=== PATIENT | female | born 1990 | race Caucasian/White ===

== ENCOUNTER 2017-04-25 12:40 | Emergency (ER) | payer BC ==
[2017-04-25 13:02] VITALS: BP 130/84
[2017-04-25] MEDS ORDERED: Clindamycin Phosphate 600 MG in Sodium Chloride 0.9% 100 ML IV ONE (13:21)
[2017-04-25] MEDS ORDERED: Sodium Chloride 0.9% 10 ML Syringe FLUSH PRN (13:22)
--- NOTE | 2017-04-25 13:30 | EDM.PDOC ---
ED HPI GENERAL MEDICAL PROBLEM - General Chief Complaint: ENT Problem Stated Complaint: SWOLLEN JAW/DENTAL PAIN Time Seen by Provider: 04/25/17 13:11 Source of Information: Reports: Patient History Limitations: Reports: No Limitations - History of Present Illness INITIAL COMMENTS - FREE TEXT/NARRATIVE: Patient is a 26-year-old female who presents to the ED complaining of right- sided lower jaw swelling and tooth pain. Patient states she's had expressed and pain to the right lower jaw where she has a tooth that has severe dental EKG. She took ibuprofen without relief. Upon waking this morning she noticed some swelling to her right lower jaw with worsening pain. She was seen at [facility] and prescribed clindamycin and Percocet. She took 2 tabs of clindamycin of unknown dose. Took a nap and upon awaking from the nap noted increasing swelling and pain. She was instructed to come to the ED for IV antibiotics. She has no history of prior symptoms. Denies any fever, nausea/vomiting, stiff neck , difficulty swallowing, or any additional complaints. She denies being . Tooth/Teeth Pain Score (Numeric/FACES): 5 - Related Data Allergies Allergy/AdvReac Type Severity Reaction Status Date / Time No Known Allergies Allergy Verified 04/25/17 13:02 Home Meds: Home Meds Clindamycin HCl 300 mg PO DAILY 04/25/17 [History] oxyCODONE HCl/Acetaminophen [Percocet 5-325 mg Tablet] 1 tab PO Q4H PRN [History] Past Medical History - Past Health History Medical/Surgical History: Denies Medical/Surgical History Social & Family History - Tobacco Use Smoking Status *Q: Current Every Day Smoker Years of Tobacco use: 3 Packs/Tins Daily: 0.1 - Caffeine Use Caffeine Use: Reports: None ED ROS ENT - Review of Systems Review Of Systems: ROS reveals no pertinent complaints other than HPI. ED EXAM, ENT - Physical Exam Exam: See Below Exam Limited By: No Limitations General Appearance: Alert, WD/WN, No Apparent Distress Ears: Hearing Grossly Normal Nose: Normal Inspection, Normal Mucousa, No Blood Mouth/Throat: Dental Abcess (right lower jaw), Dental Pain (#30 tooth with severe decay), Other (Gumline along the right lower jaw swollen with increasing pain noted. No purulent drainage. Cheek is swollen as well approximate the lower jaw. Lymphadenopathy noted submandibular with increasing pain noted.). No : Drooling, Dry Mucous Membrane, Hoarse Voice, Muffled Voice, Trismus, Uvular Deviation Course - Vital Signs Last Recorded V/S: Last Vital Signs Temp 97.9 F 04/25/17 12:54 Pulse 75 04/25/17 12:54 Resp 16 04/25/17 12:54 BP 130/84 04/25/17 12:54 Pulse Ox 96 04/25/17 12:54 - Orders/Labs/Meds Labs: Laboratory Tests 04/25/17 04/25/17 04/25/17 Range/Units 13:10 13:10 13:10 WBC 11.83 H (3.98-10.04) K/mm3 RBC 5.15 (3.98-5.22) M/mm3 Hgb 15.3 (11.2-15.7) gm/L Hct 45.1 H (34.1-44.9) % MCV 87.6 (79.4-94.8) fl MCH 29.7 (25.6-32.2) pg MCHC 33.9 (32.2-35.5) g/dl RDW Std Deviation 38.3 (36.4-46.3) fL Plt Count 313 (182-369) K/mm3 MPV 9.9 (9.4-12.3) fl Neut % (Auto) 74.3 H (34.0-71.1) % Lymph % (Auto) 16.8 L (19.3-51.7) % [place] % (Auto) 7.9 (4.7-12.5) % Eos % (Auto) 0.7 (0.7-5.8) Baso % (Auto) 0.2 (0.1-1.2) % Neut # (Auto) 8.79 H (1.56-6.13) K/mm3 Lymph # (Auto) 1.99 (1.18-3.74) K/mm3 [place] # (Auto) 0.94 H (0.24-0.36) K/mm3 Eos # (Auto) 0.08 (0.04-0.36) K/mm3 Baso # (Auto) 0.02 (0.01-0.08) K/mm3 Sodium 142 (136-145) mEq/L Potassium 4.0 (3.5-5.1) mEq/L Chloride 104 (98-107) mEq/L Carbon Dioxide 29 (21-32) mEq/L Anion Gap 13.0 (5-15) BUN 11 (7-18) mg/dL Creatinine 1.0 (0.55-1.02) mg/dL Est Cr Clr Drug Dosing 66.83 mL/min Estimated GFR (MDRD) > 60 (>60) mL/min BUN/Creatinine Ratio 11.0 L (14-18) Glucose 91 (74-106) mg/dL Calcium 9.1 (8.5-10.1) mg/dL Total Bilirubin 1.1 H (0.2-1.0) mg/dL AST 18 (15-37) U/L ALT 40 (14-59) U/L Alkaline Phosphatase 99 (46-116) U/L C-Reactive Protein 4.0 H* (<1.0) mg/dL Total Protein 7.4 (6.4-8.2) g/dl Albumin 3.8 (3.4-5.0) g/dl Globulin 3.6 gm/dL Albumin/Globulin Ratio 1.1 (1-2) HCG, Qual Negative (NEGATIVE) Meds: Medications Discontinued Medications Generic Name Dose Route Start Last Admin Trade Name Freq PRN Reason Stop Dose Admin Hydromorphone HCl 0.5 mg 04/25/17 14:19 04/25/17 14:27 Dilaudid IVPUSH 04/25/17 14:20 0.5 mg ONETIME ONE Administration Clindamycin Phosphate 600 mg/ 104 mls @ 100 mls/hr 04/25/17 13:21 04/25/17 13 :30 Sodium Chloride IV 04/25/17 14:23 100 mls/hr ONETIME ONE Administration Ketorolac Tromethamine 30 mg 04/25/17 14:19 04/25/17 14:31 Toradol IVPUSH 04/25/17 14:20 30 mg ONETIME ONE Administration Sodium Chloride 10 ml 04/25/17 13:22 04/25/17 13:30 Saline Flush FLUSH 10 ml ASDIRECTED PRN Administration Keep Vein Open - Re-Assessments/Exams Free Text/Narrative Re-Assessment/Exam: Peripheral IV established clindamycin 600 mg IVP. Initial blood work included CBC, chem 14, CRP, and hCG qualitative. Reassessment, pain to the right lower jaw is increasing. Ordered dilaudid IVP. Discussed labs with patient. Utilized ultrasound to evaluate for any obvious pus pockets with none found. I explained to her the antibiotic will take approximately 24 hours to take affect. Swelling may increase until reaches therapeutic level.Offered to obtain CT of the soft tissue neck to which she has refused. We'll discharge patient home with instructions as documented. She has prescription for clindamycin and Percocet. Departure - Departure Time of Disposition: 14:21 Disposition: Home, Self-Care 01 Condition: Good Clinical Impression: Dental abscess - Discharge Information Instructions: Dental Abscess, [id number] Referrals: PCP,None [Primary Care Provider] - Forms: ED Department Discharge Additional Instructions: Apply warm compresses to the affected area 4-6 times daily. Utilize Tylenol and ibuprofen in alternating fashion for pain. For severe pain take Percocet as prescribed 1 tablet every 6 hours. Do not take Tylenol and Percocet together. No driving while taking this medication. No driving today since receiving a sedative medication while in the ED. continue taking the clindamycin as prescribed 300 mg every 6 hours. Follow-up with dentist in the next week for reevaluation. See your primary care provider in the next 2-3 days if symptoms are not improving. Return to ED for any new or worsening symptoms.
[2017-04-25] MEDS ORDERED: HYDROmorphone 0.5 MG/0.5 ML Syringe IVPUSH ONE (14:19)
[2017-04-25] MEDS ORDERED: Ketorolac 30 MG/ML SDV IVPUSH ONE (14:19)
== END 2017-04-25 15:00 | disposition home or self-care (01) ==
LOC: JD.ED 12:40
DX: K04.7 Periapical abscess without sinus (principal); F17.210 Nicotine dependence, cigarettes, uncomplicated
CPT/HCPCS: 36415; 80053; 84703; 85025; 86140; 96365; 96375; 99284; J1170; J1885; J7030; J7050; 99283

== ENCOUNTER 2018-08-20 12:58 | Emergency (ER) | payer BC ==
[2018-08-20 13:30] VITALS: BP 130/88
[2018-08-20] MEDS ORDERED: Tamsulosin 0.4 MG Cap.ER PO STA (14:01)
--- NOTE | 2018-08-20 14:14 | EDM.PDOC ---
ED HPI GENERAL MEDICAL PROBLEM - General Chief Complaint: Flank Pain Stated Complaint: KIDNEY PAIN Time Seen by Provider: 08/20/18 13:33 Source of Information: Reports: Patient, Old Records, RN Notes Reviewed History Limitations: Reports: No Limitations - History of Present Illness INITIAL COMMENTS - FREE TEXT/NARRATIVE: Patient is a 27 year old female who presents to the ED for the evaluation of pain from a recently diagnosed kidney stone. She states that she was diagnosed with 2 kidney stones at [facility] on Thursday and was sent home with pain and nausea medications. She states that the pain is worse after around 4 or 5 pm and she takes the hydrocodone then, but can get by with ibuprofen during the day. She states that the nausea is also worse after 4 or 5 pm. She has been unable to get comfortable to get much rest and is sleeping with a heating pad. She states that she was also diagnosed with a UTI on Thursday as well and was placed on keflex for that. She states that she does have a history of kidney stones with lithotripsy needing to be done. She denies any chance of being . She has been trying to increase her fluid intake, but is not getting much better. She did call [facility] last night and they told her to come to ER if not better by today, as she should have passed the stone by now. One of the stones was measured at 6mm. [facility] was able to push her prior images to us for evaluation today. Treatments PORTFOLIO ASSISTANT: Reports: Other (see below) Other Treatments PORTFOLIO ASSISTANT: hydrocodone- has 2 pills left Left Flank Pain Score (Numeric/FACES): 6 - Related Data Allergies Allergy/AdvReac Type Severity Reaction Status Date / Time No Known Allergies Allergy Verified 04/25/17 13:02 Home Meds: Home Meds Acetaminophen/HYDROcodone [[place] 325-5 MG] 1 tab PO Q6H PRN #10 tablet 08/20/18 [Rx] Hydrocodone/Acetaminophen [Hydrocodon-Acetaminophen 5-325] 1 tab PO Q6H PRN [History] Ondansetron [Zofran ODT] 4 mg PO Q6H PRN 08/20/18 [History] Tamsulosin [Flomax] 0.4 mg PO DAILY 08/20/18 [History] cephALEXin [Keflex] 500 mg PO DAILY 08/20/18 [History] Past Medical History - Past Health History Medical/Surgical History: Denies Medical/Surgical History Genitourinary History: Reports: Renal Calculus, UTI, Recurrent - Past Surgical History Female Surgical History: Reports: Lithotripsy/[facility] Social & Family History - Tobacco Use Smoking Status *Q: Never Smoker - Caffeine Use Caffeine Use: Reports: Coffee - Recreational Drug Use Recreational Drug Use: No ED ROS GENERAL - Review of Systems Review Of Systems: See Below Constitutional: Reports: Fever, Chills HEENT: Reports: No Symptoms Respiratory: Reports: No Symptoms Cardiovascular: Reports: No Symptoms Endocrine: Reports: No Symptoms GI/Abdominal: Reports: Abdominal Pain (left flank), Nausea. Denies: Constipation, Diarrhea, Vomiting : Reports: No Symptoms Musculoskeletal: Reports: No Symptoms Skin: Reports: No Symptoms Neurological: Reports: No Symptoms Psychiatric: Reports: No Symptoms Hematologic/Lymphatic: Reports: No Symptoms Immunologic: Reports: No Symptoms ED EXAM, RENAL/ - Physical Exam Exam: See Below Exam Limited By: No Limitations General Appearance: Alert, WD/WN, No Apparent Distress Eye Exam: Bilateral Eye: Normal Inspection Ears: Normal External Exam Nose: Normal Inspection Throat/Mouth: Normal Inspection, Normal Oropharynx, No Airway Compromise Head: Atraumatic, Normocephalic Neck: Normal Inspection Respiratory/Chest: No Respiratory Distress, Lungs Clear, Normal Breath Sounds, No Accessory Muscle Use, Chest Non-Tender Cardiovascular: Normal Peripheral Pulses, Regular Rate, Rhythm, No Murmur GI/Abdominal: Normal Bowel Sounds, Soft, No Distention, Tender (left flank) Back Exam: Normal Inspection. No: CVA Tenderness (L), CVA Tenderness (R) Extremities: Normal Inspection, Normal Capillary Refill Neurological: Alert, Oriented, Normal Cognition, No Motor/Sensory Deficits Psychiatric: Normal Affect, Normal Mood Skin Exam: Warm, Dry, Intact, Normal Color, No Rash Course - Vital Signs Last Recorded V/S: Last Vital Signs Temp 97.2 F 08/20/18 13:28 Pulse 81 08/20/18 13:28 Resp 20 08/20/18 13:28 BP 130/88 08/20/18 13:28 Pulse Ox 97 08/20/18 13:28 - Orders/Labs/Meds Orders: Active Orders 24 hr Category Date Time Status Strain Urine [RC] ASDIRECTED Care 08/20/18 14:01 Active Sodium Chloride 0.9% [Normal Saline] 1,000 ml Med 08/20/18 14:15 Active IV ASDIRECTED Medication Orders Sodium Chloride (Normal Saline) 1,000 mls @ 999 mls/hr IV ASDIRECTED DON Last Admin: 08/20/18 14:18 Dose: 999 mls/hr Labs: Laboratory Tests 08/20/18 08/20/18 08/20/18 Range/Units 14:15 14:15 14:35 WBC 7.14 (3.98-10.04) K/mm3 RBC 4.20 (3.98-5.22) M/mm3 Hgb 12.3 (11.2-15.7) gm/L Hct 37.7 (34.1-44.9) % MCV 89.8 (79.4-94.8) fl MCH 29.3 (25.6-32.2) pg MCHC 32.6 (32.2-35.5) g/dl RDW Std Deviation 39.9 (36.4-46.3) fL Plt Count 261 (182-369) K/mm3 MPV 9.8 (9.4-12.3) fl Neutrophils % (Manual) 53 (40-60) % Band Neutrophils % 0 (0-10) % Lymphocytes % (Manual) 39 (20-40) % Atypical Lymphs % 0 % Monocytes % (Manual) 5 (2-10) % Eosinophils % (Manual) 2 (0.7-5.8) % Basophils % (Manual) 1 (0.1-1.2) Platelet Estimate Adequate RBC Morph Comment Normal Sodium 140 (136-145) mEq/L Potassium 3.8 (3.5-5.1) mEq/L Chloride 106 (98-107) mEq/L Carbon Dioxide 28 (21-32) mEq/L Anion Gap 9.8 (5-15) BUN 17 (7-18) mg/dL Creatinine 1.6 H (0.55-1.02) mg/dL Est Cr Clr Drug Dosing 41.40 mL/min Estimated GFR (MDRD) 38 (>60) mL/min BUN/Creatinine Ratio 10.6 L (14-18) Glucose 120 H (74-106) mg/dL Calcium 8.7 (8.5-10.1) mg/dL Total Bilirubin 0.3 (0.2-1.0) mg/dL AST 19 (15-37) U/L ALT 32 (14-59) U/L Alkaline Phosphatase 139 H (46-116) U/L Total Protein 6.7 (6.4-8.2) g/dl Albumin 2.8 L (3.4-5.0) g/dl Globulin 3.9 gm/dL Albumin/Globulin Ratio 0.7 L (1-2) Urine Color Yellow (Yellow) Urine Appearance Clear (Clear) Urine pH 6.0 (5.0-8.0) Ur Specific [place] 1.015 (1.005-1.030) Urine Protein Negative (Negative) Urine Glucose (UA) Negative (Negative) Urine Ketones Negative (Negative) Urine Occult Blood Negative (Negative) Urine Nitrite Negative (Negative) Urine Bilirubin Negative (Negative) Urine Urobilinogen 0.2 (0.2-1.0) Ur Leukocyte Esterase Trace H (Negative) Urine RBC Not seen (0-5) /hpf Urine WBC 0-5 (0-5) /hpf Ur Epithelial Cells 40-50 H (0-5) /hpf Urine Bacteria Rare (FEW) /hpf Urine Mucus Not seen (FEW) /hpf Meds: Medications Generic Name Dose Route Start Last Admin Trade Name Freq PRN Reason Stop Dose Admin Sodium Chloride 1,000 mls @ 999 mls/hr 08/20/18 14:15 08/20/18 14:18 Normal Saline IV 999 mls/hr ASDIRECTED DON Administration Discontinued Medications Generic Name Dose Route Start Last Admin Trade Name Freq PRN Reason Stop Dose Admin Tamsulosin HCl 0.4 mg 08/20/18 14:01 08/20/18 14:20 Flomax PO 08/20/18 14:02 0.4 mg ONETIME STA Administration - Re-Assessments/Exams Free Text/Narrative Re-Assessment/Exam: 08/20/18 14:17 Pt presents to the ED for the evaluation of persistent pain with recent kidney stone diagnosis. [facility] was able to push her CT and she did have 2 stones, one in the kidney and one that appears to be just exiting the kidney via the proximal ureter. I have ordered a CT abdomen pelvis w/o contrast to see if the stones have moved much with questionable need for lithotripsy. Have also ordered IV fluid bolus with 0.4mg PO tamsulosin, UA, CBC, and CMP for further evaluation to see if the UTI is resolving as well. 08/20/18 16:30 CT is back and does again demonstrate that she has 2 stones, 1-5mm obstructing stone at left proximal ureter, and 1 nonobstructing stone in her left kidney. I have recommended pain management over the weekend with the possibility of urology referral and lithotripsy if the stones have not passed by thursday. [place] 5-325 have been provided to the patient and ibuprofen was recommended for day use if she does not want to take the norco during the day. She is amenable to this plan. Labs were essentially WNL. Departure - Departure Time of Disposition: 16:33 Disposition: Home, Self-Care 01 Condition: Fair Clinical Impression: Kidney stone on left side - Discharge Information *PRESCRIPTION DRUG MONITORING PROGRAM REVIEWED*: No *COPY OF PRESCRIPTION DRUG MONITORING REPORT IN PATIENT MARGI: No Prescriptions: Acetaminophen/HYDROcodone [[place] 325-5 MG] 1 tab PO Q6H PRN #10 tablet PRN Reason: Pain Instructions: Lithotripsy Referrals: PCP,None [Primary Care Provider] - Forms: ED Department Discharge Additional Instructions: You have been evaluated in the ED for kidney stones. Please take the hydrocodone/tylenol 5-325 every 6 hours as needed for pain relief. You may also take ibuprofen 600mg q6 PRN for pain relief during the day. Please increase fluid intake to help pass the kidney stones. If the stones have not passed by Thursday, please return for re-evaluation with possibility of lithotripsy. Please return to ED if your symptoms change or worsen. - My Orders Last 24 Hours: My Active Orders 08/20/18 14:01 Strain Urine [RC] ASDIRECTED 08/20/18 14:15 Sodium Chloride 0.9% [Normal Saline] 1,000 ml IV ASDIRECTED - Assessment/Plan Last 24 Hours: My Active Orders 08/20/18 14:01 Strain Urine [RC] ASDIRECTED 08/20/18 14:15 Sodium Chloride 0.9% [Normal Saline] 1,000 ml IV ASDIRECTED
[2018-08-20] MEDS ORDERED: Sodium Chloride 0.9% 1,000 ML IV SCH (14:15)
--- NOTE | 2018-08-20 15:43 | CT ---
CT abdomen and pelvis Technique: Multiple axial sections were obtained from above the dome of the diaphragm inferiorly through the pubic symphysis. Intravenous and oral contrast not utilized. Study has been performed as a ureteral stone protocol. Comparison: No previous abdominal or pelvic CT exam is available. Findings: Slight atelectasis is noted within both lung bases. Nonobstructing stone is noted within the lower left kidney. This stone measures approximately 7.8 mm in size. Obstructing stone is noted within the proximal left ureter at the UPJ measuring 5 mm in size located slightly past the UPJ. No other abnormal calcifications are seen along the course of the ureters. Left kidney is swollen and likely due to the obstructing stone. Vague hypodense lesions are suggested within the kidneys possibly due to cysts. Adrenal glands show no nodule. Pancreas is normal. Liver and spleen shows no discrete abnormality. Aorta shows no aneurysm. No retroperitoneal adenopathy or mesenteric abnormalities are seen. No pelvic mass or adenopathy is seen. IUD is present within the uterus. Minimal increased stool is noted within the colon. Appendix is seen and appears normal in size. Bone window settings were reviewed which appear within normal limits for the patient's age. Impression: 1. Obstructing stone within the proximal left ureter as well as nonobstructing stone within the lower left kidney. Left kidney appears swollen. 2. Questionable cysts within the kidneys. 3. Other incidental findings as noted above. Diagnostic code #3
== END 2018-08-20 16:45 | disposition home or self-care (01) ==
LOC: JD.ED 12:58
DX: N20.2 Calculus of kidney with calculus of ureter (principal); Z79.899 Other long term (current) drug therapy
CPT/HCPCS: 36415; 74176; 80053; 81001; 85007; 85027; 96360; 99284; A9270; J7040; 99283